=== PATIENT | female | born 2000 | race Caucasian/White ===

== ENCOUNTER 2021-07-19 21:09 | Emergency (ER) | payer MEDICAID ==
[~2021-07-19] VITALS: Ht 165.1 cm; Wt 49.9 kg
[2021-07-19 21:24] VITALS: BP 132/79
[2021-07-19] MEDS ORDERED: LIDOCAINE VISCOUS 2% UD 15 ML UDC ONE (21:45)
[2021-07-19] MEDS ORDERED: IBUPROFEN 400 MG TABLET ONE (21:46)
[2021-07-19] MEDS ORDERED: BENZ9GEL3 MM (21:48)
[2021-07-19] MEDS ORDERED: IBUPROFEN 400 MG TABLET PO ONE (22:00)
[2021-07-19] MEDS ORDERED: LIDOCAINE VISCOUS 2% UD 15 ML UDC MM ONE (22:00)
--- NOTE | 2021-07-19 22:00 | NUR ---
Patient discharged to home in stable condition. Written and verbal after care instructions given. Patient verbalizes understanding of instruction. Pt ambulatory with a steady gait
== END 2021-07-19 22:02 | disposition home or self-care (01) ==
LOC: ER 21:15 → EDBD 21:15 → ER 22:02
DX: K12.0 Recurrent oral aphthae (principal)